=== PATIENT | male | born 1980 | race Caucasian/White ===

== ENCOUNTER 2018-04-03 09:48 | Inpatient (IN) ==
[2018-04-03] MEDS ORDERED: SODIUM CHLORIDE 0.9% 1,000 ML IV STA (11:18)
[2018-04-03] MEDS ORDERED: HYDROmorphone 2 MG/1 ML VIAL IV STA ×2 (11:18→12:57)
[2018-04-03] MEDS ORDERED: ONDANSETRON 4 MG/2 ML VIAL IV STA (11:18)
[2018-04-03] MEDS ORDERED: HYDROmorphone 2 MG/1 ML VIAL ONE (11:20)
[2018-04-03] MEDS ORDERED: ONDANSETRON 4 MG/2 ML VIAL ONE ×3 (11:20→16:11)
[2018-04-03 11:42] LABS: Basophils # 0.2 10*3/uL (0.0-0.2); Basophils % 1.2 % (0.0-0.8); Eosinophils # 0.1 10*3/uL (0.0-0.87); Hemoglobin 15.1 GM/DL (14.0-18.0); Immature Granulocytes % 0.2 %; Immature Granulocytes Absolute 0.03 #; Lymphocytes # 2.1 10*3/uL (1.4-4.0); Lymphocytes % 16.3 % (21.2-54.2); Mean Corpuscular HGB Conc 35.1 GM/DL (32-36); Mean Corpuscular Hemoglobin 31 PG (27-34); Mean Corpuscular Volume 88.5 FL (87-102); Mean Platelet Volume 10.6 FL (9.6-12.0); Monocytes # 0.9 10*3/uL (0.11-0.8); Monocytes % 6.9 % (1.7-12.7); Neutrophils # 9.6 10*3/uL (1.4-7.4); Neutrophils % 74.4 % (38.7-73.9); Platelet Count 331 T/CUMM (130-400); Red Blood Count 4.86 MC/CUMM (3.8-5.5); Red Cell Distribution Width 13.1 % (9.3-17.3); White Blood Count 12.9 T/CUMM (4-12)
[2018-04-03 12:00] LABS: Osmolality,Calculated 284.1 MOS/KG (273-304); Potassium 4.1 MMOL/L (3.5-5.1)
[2018-04-03] MEDS ORDERED: MORPHINE 4 MG/1 ML VIAL IV STA (13:06)
[2018-04-03] MEDS ORDERED: MORPHINE 4 MG/1 ML VIAL ONE (13:07)
[2018-04-03] MEDS ORDERED: PROMETHAZINE 25 MG/1 ML VIAL IM PRN (13:53)
[2018-04-03] MEDS ORDERED: MAGNESIUM HYDROXIDE SUSP 30 ML UDCUP PO PRN (13:53)
[2018-04-03] MEDS ORDERED: ONDANSETRON 4 MG/2 ML VIAL IV PRN ×2 (13:53→16:12)
[2018-04-03] MEDS ORDERED: KETOROLAC 30 MG/1 ML VIAL IV PRN (13:53)
[2018-04-03] MEDS ORDERED: HYDROmorphone 2 MG/1 ML VIAL IV PRN ×3 (13:53→16:25)
[2018-04-03] MEDS ORDERED: ceFAZolin 1,000 MG VIAL ONE (14:39)
[2018-04-03] MEDS ORDERED: MORPHINE 10 MG/1 ML VIAL ONE (15:59)
[2018-04-03] MEDS ORDERED: MIDAZOLAM 2 MG/2 ML VIAL ONE ×2 (15:59→16:11)
[2018-04-03] MEDS ORDERED: KETOROLAC 30 MG/1 ML VIAL ONE (16:11)
[2018-04-03] MEDS ORDERED: fentaNYL 100 MCG/2 ML VIAL ONE (16:11)
[2018-04-03] MEDS ORDERED: LIDOCAINE 1% 5 ML VIAL ONE (16:11)
[2018-04-03] MEDS ORDERED: SEVOFLURANE 1 UNIT/15 MINUTE INH ONE (16:11)
[2018-04-03] MEDS ORDERED: PHENYLEPHRINE 1 MG/10 ML SYRINGE IV ONE (16:12)
[2018-04-03] MEDS ORDERED: PROPOFOL 200 MG/20 ML VIAL IV ONE (16:12)
[2018-04-03] MEDS: LACTATED RINGERS 1,000 ML IV SCH ×2 (17:13→20:20)
[2018-04-03] MEDS ORDERED: ALUMINUM/MAGNES/SIMETH MAX STR 30 ML UDCUP PO PRN (20:24)
[2018-04-03] MEDS: ceFAZolin 1,000 MG in SYRINGE 1 EACH IV SCH (21:03)
[2018-04-04] MEDS: ceFAZolin 1,000 MG in SYRINGE 1 EACH IV SCH ×2 (03:33→13:37)
[2018-04-04] MEDS ORDERED: traMADol 50 MG TABLET PO PRN ×2 (08:42)
[2018-04-04] MEDS ORDERED: diphenhydrAMINE CAP 25 MG CAPSULE PO PRN (08:44)
[2018-04-04] MEDS ORDERED: TEMAZEPAM 15 MG CAPSULE PO PRN (08:45)
[2018-04-04] MEDS ORDERED: MORPHINE 4 MG/1 ML VIAL IV PRN (08:47)
[2018-04-04] MEDS: LACTATED RINGERS 1,000 ML IV SCH ×3 (12:28→21:10)
[2018-04-04] MEDS: MORPHINE 4 MG/1 ML VIAL IV PRN ×3 (14:20→23:35)
[2018-04-05 08:04] VITALS: BP 131/86
== END 2018-04-05 11:35 | disposition home or self-care (01) | DRG 494 ==
LOC: N.ED 09:48 → N.EDINP 13:53 → N.3E 16:15
PROVIDERS: ADMIT Orthopaedic Surgery; ATTEND Orthopaedic Surgery